=== PATIENT | male | born 1975 | race Caucasian/White ===

== ENCOUNTER 2024-02-01 04:09 | Emergency (ER) | payer BC, SELFPAY ==
--- NOTE | ~2024-02-01 | XR_ITS ---
EXAMINATION: XR soft tissue neck, XR chest 1V DATE: 02/01/2024 04:48 INDICATION: Possible ingested foreign body TECHNIQUE: 1. AP and lateral views of the soft tissues of neck were obtained. 2. PA view of the chest was obtained. COMPARISON: None FINDINGS: There is a 1 cm long thin C shaped wire-like metallic foreign body projecting over the midline at the cervicothoracic junction on the frontal projections. The densities unable to be definitively identif ied on the lateral projection however there appears to be likely correlate projecting just anterior t o the spine which could be consistent with esophageal foreign body. No other radiopaque foreign david s identified at the neck, chest or upper abdomen. Cervical soft tissues are otherwise unremarkable with normal epiglottis and prevertebral soft tissues . Calcified nodule at the left lung base consistent with old granulomatous disease. No focal airspace opacities, pulmonary edema, pleural effusion or pneumothorax. The cardiomediastinal silhouette is no rmal. 10 degrees upper thoracic levocurvature. Moderate cervical spondylosis. IMPRESSION: 1. 1 cm long thin wire-like metallic foreign body projects over the cervicothoracic junction likely i n the region of the esophagus. 2. No acute cardiopulmonary disease. Reviewed, dictated and finalized at location A. IMPRESSION: 1. 1 cm long thin wire-like metallic foreign body projects over the cervicothor acic junction likely in the region of the esophagus. 2. No acute cardiopulmonary disease.
[2024-02-01 04:21] VITALS: BP 126/92; PULSE 67; RESP 16; O2SAT 100
--- NOTE | 2024-02-01 04:33 | ED.GENADULT ---
HPI - General Adult General Chief complaint: Unspecified Stated complaint: partial stuck in throat Time Seen by Provider: 02/01/24 04:20 History of Present Illness HPI narrative: Patient 48-year-old gentleman who presents emergency department with chief complaint of possible foreign body patient reports that he was sleeping wearing a partial plate the partial plate broke and he swallowed it the patient states he has a foreign body sensation in his lower neck upper chest patient states he is able to swallow his own secretions but it does hurt the patient also reports that there is no shortness of breath denies stridor Related Data Allergies Allergy/AdvReac Type Severity Reaction Status Date / Time No Known Allergies Allergy Verified 02/01/24 04:10 Review of Systems Review of Systems: A 10 system review of systems was completed on the patient and is negative except for what is stated in the HPI. Nursing and ancillary documentation was reviewed. Exam Narrative: GENERAL: Well-appearing, well-nourished, and in no acute distress. HEAD: Normocephalic, atraumatic. EYES: PERRLA and EOMI. ENT: Nares clear, no rhinorrhea or epistaxis. Mucous membranes moist. No stridor normal voice and along oral secretions normally NECK: Supple. CHEST: Clear to auscultation. No respiratory distress. HEART: Regular rate and rhythm. No murmur heard. Normal peripheral pulses. ABDOMEN: Soft, nontender, nondistended, normal active bowel sounds. EXTREMITIES: Normal range of motion. No edema. SKIN: Warm, dry, no rash. NEURO: No focal deficits. Alert and oriented x3. PSYCH: Normal mood and affect. Course Vital Signs Vital signs: Vital Signs Pulse Rate 67 02/01/24 04:21 Respiratory Rate 16 02/01/24 04:21 Blood Pressure 126/92 H 02/01/24 04:21 Pulse Oximetry 100 02/01/24 04:21 Temperature 36.7 C 02/01/24 05:04 Pulse Rate 62 02/01/24 05:02 Respiratory Rate 17 02/01/24 05:02 Blood Pressure 119/90 02/01/24 05:02 Pulse Oximetry 100 02/01/24 05:02 Medical Decision Making [facility] Narrative Medical decision making narrative: Differential diagnosis includes foreign body esophagus or airway Plain film x-rays were obtained of both soft tissue neck and chest Soft tissue neck showed evidence of a metallic foreign body at the level of the clavicle midline The case was discussed with Dr. Braxton who is on-call for GI. Dr. Braxton recommended the patient be transferred as we do not have ENT coverage is well since this could be go GI or ENT located The case was discussed with the [facility] transfer center and the patient was accepted to the [facility] ER after discussion with ENT Vital Signs Vital Signs: Vital Signs Pulse Rate 67 02/01/24 04:21 Respiratory Rate 16 02/01/24 04:21 Blood Pressure 126/92 H 02/01/24 04:21 Pulse Oximetry 100 02/01/24 04:21 Temperature 36.7 C 02/01/24 05:04 Pulse Rate 62 02/01/24 05:02 Respiratory Rate 17 02/01/24 05:02 Blood Pressure 119/90 02/01/24 05:02 Pulse Oximetry 100 02/01/24 05:02 Discharge Plan Discharge Clinical Impression: Esophageal foreign body Patient Disposition: Acute Care Hospital Condition: Stable Follow-up/Referrals: PHYSICIAN,[facility] [employer] [employer] [Primary Care Provider] - Time of Disposition: 06:11
[2024-02-01 05:02] VITALS: BP 119/90; PULSE 62; RESP 17; O2SAT 100
[2024-02-01 05:04] VITALS: TEMP 36.7
--- NOTE | 2024-02-01 05:47 | PC.NURSE ---
sister Bianca wants to be notified where patient is being transferred to. [phone]
[2024-02-01 07:41] VITALS: BP 116/80; PULSE 68; RESP 18; TEMP 36.8; O2SAT 100
[2024-02-01 08:56] VITALS: BP 126/85; PULSE 68; RESP 18; TEMP 36.7; O2SAT 100
== END 2024-02-01 09:00 | disposition short-term general hospital (02) ==
PROVIDERS: Emergency Provider Emergency Medicine
DX: T18.198A Other foreign object in esophagus causing other injury, initial encounter (principal); W44.8XXA Other foreign body entering into or through a natural orifice, initial encounter
CPT/HCPCS: 70360; 71045; 99285